=== PATIENT | female | born 1950 | race Caucasian/White ===

== ENCOUNTER → 2016-04-08 | Outpatient (CLI) | payer MEDICARE, OTHER ==
--- NOTE | 2016-04-08 14:10 | BD ---
EXAMINATION TYPE: MG DEXA axial skeleton. DATE OF EXAM: 04/08/2016 9:45 AM CLINICAL HISTORY: Postmenopausal female, V 49.81 Height: 64inches Weight: 195 FRAX RISK QUESTIONS: Alcohol (3 or more units per day): no Family History (Parent hip fracture): no Glucocorticoids (More than 3mos): no (Ex: prednisone, prednisolone, methylprednisolone, dexamethasone, and hydrocortisone). History of Fracture in Adulthood: ankle Secondary Osteoporosis: 1. Type 1 Diabetes: no 2. Hyperthyroidism: no 3. Menopause before 45: no 4. Malnutrition: no 5. Chronic liver disease: no Rheumatoid Arthritis: no Current Tobacco Use: no RISK FACTORS HISTORY OF: History of Fracture: yes, ankle When: 1987 Family History of Osteoporosis: no Drink Alcohol: yes, on occasion, socially Active: yes Diet low in dairy products/other sources of calcium: no Postmenopausal woman: yes Take estrogen and/or progesterone medications: no Lost more than 2 inches in height since high school: no Frequent falls: no Poor Health: no Hyperparathyroidism: no Adrenal Insufficiency: no MEDICATIONS: Prednisone or other steroids: no Thyroid Medications: yes Which medication: Synthroid How Long: less than 5 years Osteoporosis Medications: not now Which medication: Actonel How Long: at least one year Additional Medications: calcium, Metformin Additional History: borderline diabetic EXAM MEASUREMENTS: Bone mineral densitometry was performed using the Smartzer System. Bone mineral density as measured about the Lumbar spine is: ----- L1-L4(G/cm2): 1.130 T Score Values are as follows: ----- L2: -0.6 ----- L3: 0.1 ----- L4: -0.8 ----- L1-L4: -0.4 Bone mineral density has: Decreased -1.5% since study of: 03/09/2014 Bone mineral density about the R hip (g/cm2): 0.818 Bone mineral density about the L hip (g/cm2): 0.782 T Score values are as follows: -----R Neck: -1.6 -----L Neck: -1.8 -----R Intertrochanter: -0.7 -----L Intertrochanter: -0.4 Bone mineral density has: Increased 1.2% since study of: 03/09/2014 IMPRESSION Osteopenia (T Score between -2.5 and -1 as noted by T score values Bilateral hips There is slightly increased risk of fracture and the patient may be considered for treatment. Re-Screen 1-2 years. NOTE: T-SCORE=SD OF THE YOUNG ADULT MEAN.
== END | disposition home or self-care (01) ==
LOC: RADBDWWP 09:04
PROVIDERS: ATTEND Family Medicine
DX: M85.80 Other specified disorders of bone density and structure, unspecified site (principal); Z78.0 Asymptomatic menopausal state
CPT/HCPCS: 77080

== ENCOUNTER → 2016-12-28 | Outpatient (CLI) | payer MEDICARE, OTHER ==
--- NOTE | 2016-12-28 11:26 | MM ---
Reason for exam: screening (asymptomatic). Last mammogram was performed 2 years and 4 months ago. History: Patient is postmenopausal. Stereotactic core biopsy of the left breast, July 23, 2003. Physical Findings: A clinical breast exam by your physician is recommended on an annual basis and results should be correlated with mammographic findings. MG Screening Mammo w CAD Bilateral CC and MLO view(s) were taken. Prior study comparison: August 27, 2014, bilateral MG screening mammo w CAD. August 25, 2013, bilateral MG screening mammo w CAD. The breast tissue is heterogeneously dense. This may lower the sensitivity of mammography. There is no discrete abnormality. ASSESSMENT: Negative, BI-RAD 1 RECOMMENDATION: Routine screening mammogram of both breasts in 1 year.
== END | disposition home or self-care (01) ==
LOC: RADMAMWWP 08:09
PROVIDERS: ATTEND Family Medicine
DX: Z12.31 Encounter for screening mammogram for malignant neoplasm of breast (principal)

== ENCOUNTER 2017-06-12 19:01 | Inpatient (IN) | payer MEDICARE, OTHER ==
[2017-06-12] MEDS ORDERED: SODIUM CHLORIDE 0.9% 1,000 ML IV STA (19:33)
[2017-06-12] MEDS ORDERED: DICYCLOMINE 10 MG/ML 2 ML AMP IM STA (19:33)
[2017-06-12] MEDS ORDERED: ONDANSETRON 4 MG/2 ML VIAL IVP STA (19:33)
[2017-06-12] MEDS ORDERED: RX INFO: IV CONTRAST WAS GIVEN 1 EACH MISC MISCELLANE PRN (19:35)
--- NOTE | 2017-06-12 19:38 | ED ---
General Adult HPI - General Chief complaint: Abdominal Pain Stated complaint: ABD PAIN Time Seen by Provider: 06/12/17 19:15 Source: patient, EMS, RN notes reviewed Mode of arrival: EMS Limitations: no limitations - History of Present Illness Initial comments: 66-year-old female presents to the emergency department with a chief complaint of abdominal pain. She states she started with a little upper respiratory cough cold like symptoms. She states that she was placed on antibiotic but she does not know the name of it. She states she finished that on Wednesday. She states now she's had some left sided kidney pain. She states now she feels very bloated and is having abdominal cramping. She does admit to diarrhea with this. She denies any nausea or vomiting. She states sometimes the pain will radiate up into her chest. She denies any shortness of breath with this. She was concerned due to his discomfort so she thought that she should be seen. She denies any high fevers. She states that she has had problems with abdominal pain and indigestion in the past and they worked her up for a gallbladder but she states this is much lower.Patient denies any recent fever, chills, shortness of breath, chest pain, back pain, nausea vomiting, numbness or tingling, dysuria or hematuria, constipation, headaches or visual changes, or any other current symptoms. - Related Data Home Medications Medication Instructions Recorded Confirmed Cholecalciferol [Vitamin D3] 1,000 unit PO DAILY 06/12/17 06/12/17 Cyanocobalamin (Vitamin B-12) 1,000 mcg PO DAILY 06/12/17 06/12/17 [Vitamin B-12] Losartan Potassium 50 mg PO DAILY 06/12/17 06/12/17 Meclizine [Antivert] 25 mg PO TID PRN 06/12/17 06/12/17 Metoprolol Succinate [Toprol XL] 50 mg PO DAILY 06/12/17 06/12/17 Pravastatin Sodium [Pravachol] 80 mg PO HS 06/12/17 06/12/17 Protandin 1 tab PO DAILY 06/12/17 06/12/17 metFORMIN HCL [metFORMIN HCL ER] 750 mg PO HS 06/12/17 06/12/17 Allergies Allergy/AdvReac Type Severity Reaction Status Date / Time No Known Allergies Allergy Unverified 06/12/17 19:40 Review of Systems ROS Statement: Those systems with pertinent positive or pertinent negative responses have been documented in the HPI. ROS Other: All systems not noted in ROS Statement are negative. Past Medical History Past Medical History: Diabetes Mellitus, Hyperlipidemia, Hypertension History of Any Multi-Drug Resistant Organisms: None Reported Past Surgical History: Orthopedic Surgery Additional Past Surgical History / Comment(s): screws and pins inserted in left ankle Past Psychological History: No Psychological Hx Reported Smoking Status: Never smoker Past Alcohol Use History: Occasional Past Drug Use History: None Reported General Exam - General Exam Comments Initial Comments: General: The patient is awake and alert, in no distress, and does not appear acutely ill. Eye: Pupils are equal, round and reactive to light, extra-ocular movements are intact; there is normal conjunctiva bilaterally. No signs of icterus. Ears, nose, mouth and throat: There are moist mucous membranes and no oral lesions. Neck: The neck is supple, there is no tenderness. Cardiovascular: There is a regular rate and rhythm. No murmur, rub or gallop is appreciated. Respiratory: Lungs are clear to auscultation, respirations are non-labored, breath sounds are equal. No wheezes, stridor, rales, or rhonchi. Gastrointestinal: Soft, non-distended, diffusely mildly tender abdomen without masses or organomegaly noted. There is no rebound or guarding present. No CVA tenderness. Bowel sounds are unremarkable. Back: There is no tenderness to palpation in the midline. There is no obvious deformity. No rashes noted. Musculoskeletal: Normal ROM, no tenderness, There is no pedal edema. There is no calf tenderness or swelling. Sensation intact. Pulses equal bilaterally 2+. Neurological: CN II-XII intact, There are no obvious motor or sensory deficits. Coordination appears grossly intact. Speech is normal. Skin: Skin is warm and dry and no rashes or lesions are noted. Psychiatric: Cooperative, appropriate mood & affect, normal judgment. Limitations: no limitations Course Vital Signs 06/12/17 06/12/17 19:05 20:59 Temperature 97.4 F L Pulse Rate 76 83 Respiratory 17 17 Rate Blood Pressure 172/116 165/74 O2 Sat by Pulse 100 99 Oximetry EKG Findings - EKG Comments: EKG Findings:: Sinus rhythm with premature atrial complexes with abberrant conduction, ventricular rate 71, GA interval 138, QRS duration 72 Medical Decision Making - Medical Decision Making 66-year-old female presents to the emergency department with a chief complaint of abdominal pain. At this time patient's lab work has been reviewed. At this time CAT scan has been reviewed as well as. At this time the patient does continue to have some abdominal pain. Due to her CAT scan with concern for the dilated loops and question about obstruction we will admit the patient for ileus. She has not provided us a stool sample here has not passed gas. There is no nausea vomiting. We will put her on a clear liquid diet. We will have her doctors see her in the morning. Patient is in agreement this plan. We did discuss that we still do need a stool sample. Patient is in agreement PLAN. At this time she'll be discharged. - Lab Data Result diagrams: 06/12/17 19:42 06/12/17 19:42 Lab Results 06/12/17 06/12/17 06/12/17 Range/Units 19:42 19:42 19:42 WBC 8.6 (3.8-10.6) k/uL RBC 4.17 (3.80-5.40) m/uL Hgb 13.2 (11.4-16.0) gm/dL Hct 38.1 (34.0-46.0) % MCV 91.5 (80.0-100.0) fL MCH 31.7 (25.0-35.0) pg MCHC 34.7 (31.0-37.0) g/dL RDW 12.5 (11.5-15.5) % Plt Count 324 (150-450) k/uL Neutrophils % 74 % Lymphocytes % 17 % Monocytes % 4 % Eosinophils % 2 % Basophils % 0 % Neutrophils # 6.4 (1.3-7.7) k/uL Lymphocytes # 1.5 (1.0-4.8) k/uL Monocytes # 0.4 (0-1.0) k/uL Eosinophils # 0.1 (0-0.7) k/uL Basophils # 0.0 (0-0.2) k/uL PT (9.0-12.0) sec INR (<1.2) APTT (22.0-30.0) sec Sodium 143 (137-145) mmol/L Potassium 3.9 (3.5-5.1) mmol/L Chloride 108 H (98-107) mmol/L Carbon Dioxide 21 L (22-30) mmol/L Anion Gap 14 mmol/L BUN 18 H (7-17) mg/dL Creatinine 0.70 (0.52-1.04) mg/dL Est GFR (CKD-EPI)AfAm >90 (>60 ml/min/1.73 sqM) Est GFR (CKD-EPI)NonAf 90 (>60 ml/min/1.73 sqM) Glucose 126 H (74-99) mg/dL Plasma Lactic Acid Jose 2.4 H* (0.7-2.0) mmol/L Calcium 10.2 (8.4-10.2) mg/dL Total Bilirubin 0.3 (0.2-1.3) mg/dL AST 28 (14-36) U/L ALT 48 (9-52) U/L Alkaline Phosphatase 65 (38-126) U/L Total Creatine Kinase (30-135) U/L CK-MB (CK-2) (0.0-2.4) ng/mL CK-MB (CK-2) Rel Index Troponin I (0.000-0.034) ng/mL Total Protein 7.4 (6.3-8.2) g/dL Albumin 4.5 (3.5-5.0) g/dL Amylase 55 (30-110) U/L Lipase 129 (23-300) U/L Urine Color Urine Appearance (Clear) Urine pH (5.0-8.0) Ur Specific [place] (1.001-1.035) Urine Protein (Negative) Urine Glucose (UA) (Negative) Urine Ketones (Negative) Urine Blood (Negative) Urine Nitrite (Negative) Urine Bilirubin (Negative) Urine Urobilinogen (<2.0) mg/dL Ur Leukocyte Esterase (Negative) 06/12/17 06/12/17 06/12/17 Range/Units 19:42 19:42 19:42 WBC (3.8-10.6) k/uL RBC (3.80-5.40) m/uL Hgb (11.4-16.0) gm/dL Hct (34.0-46.0) % MCV (80.0-100.0) fL MCH (25.0-35.0) pg MCHC (31.0-37.0) g/dL RDW (11.5-15.5) % Plt Count (150-450) k/uL Neutrophils % % Lymphocytes % % Monocytes % % Eosinophils % % Basophils % % Neutrophils # (1.3-7.7) k/uL Lymphocytes # (1.0-4.8) k/uL Monocytes # (0-1.0) k/uL Eosinophils # (0-0.7) k/uL Basophils # (0-0.2) k/uL PT 10.0 (9.0-12.0) sec INR 1.0 (<1.2) APTT 22.0 (22.0-30.0) sec Sodium (137-145) mmol/L Potassium (3.5-5.1) mmol/L Chloride (98-107) mmol/L Carbon Dioxide (22-30) mmol/L Anion Gap mmol/L BUN (7-17) mg/dL Creatinine (0.52-1.04) mg/dL Est GFR (CKD-EPI)AfAm (>60 ml/min/1.73 sqM) Est GFR (CKD-EPI)NonAf (>60 ml/min/1.73 sqM) Glucose (74-99) mg/dL Plasma Lactic Acid Jose (0.7-2.0) mmol/L Calcium (8.4-10.2) mg/dL Total Bilirubin (0.2-1.3) mg/dL AST (14-36) U/L ALT (9-52) U/L Alkaline Phosphatase (38-126) U/L Total Creatine Kinase 54 (30-135) U/L CK-MB (CK-2) 0.6 (0.0-2.4) ng/mL CK-MB (CK-2) Rel Index 1.1 Troponin I <0.012 (0.000-0.034) ng/mL Total Protein (6.3-8.2) g/dL Albumin (3.5-5.0) g/dL Amylase (30-110) U/L Lipase (23-300) U/L Urine Color Light Yellow Urine Appearance Clear (Clear) Urine pH 7.5 (5.0-8.0) Ur Specific [place] 1.007 (1.001-1.035) Urine Protein Negative (Negative) Urine Glucose (UA) Negative (Negative) Urine Ketones Trace H (Negative) Urine Blood Negative (Negative) Urine Nitrite Negative (Negative) Urine Bilirubin Negative (Negative) Urine Urobilinogen <2.0 (<2.0) mg/dL Ur Leukocyte Esterase Negative (Negative) - Radiology Data Radiology results: report reviewed, image reviewed Disposition Clinical Impression: Ileus, Diarrhea, Abdominal pain Disposition: ADMITTED IP TO THIS [facility] Condition: Stable Referrals: Diana Jain MD [Primary Care Provider] - 1-2 days Decision Date: 06/12/17 Decision Time: 21:35
[2017-06-12 20:11] LABS: Appearance,Urine Clear (Clear); Bilirubin,Urine Negative (Negative); Blood,Urine Negative (Negative); Color,Urine Light Yellow; Glucose,Urine (UA) Negative (Negative); Ketones,Urine Trace (Negative); Leukocyte Esterase,Urine Negative (Negative); Nitrite,Urine Negative (Negative); PH, Urine 7.5 (5.0-8.0); Protein,Urine Negative (Negative); Specific Gravity,Urine 1.007 (1.001-1.035); Urobilinogen,Urine <2.0 mg/dL (<2.0)
[2017-06-12 20:14] LABS: Basophils % (A) 0 %; Eosinophils # (A) 0.1 k/uL (0-0.7); Eosinophils % (A) 2 %; HCT 38.1 % (34.0-46.0); HGB 13.2 gm/dL (11.4-16.0); Lymphocytes # (A) 1.5 k/uL (1.0-4.8); Lymphocytes % (A) 17 %; MCH 31.7 pg (25.0-35.0); MCHC 34.7 g/dL (31.0-37.0); MCV 91.5 fL (80.0-100.0); Mean Platelet Volume 6.7; Monocytes # (A) 0.4 k/uL (0-1.0); Monocytes % (A) 4 %; Neutrophils # (A) 6.4 k/uL (1.3-7.7); Neutrophils % (A) 74 %; Platelet Count 324 k/uL (150-450); RBC 4.17 m/uL (3.80-5.40); RDW 12.5 % (11.5-15.5); WBC 8.6 k/uL (3.8-10.6)
[2017-06-12 20:22] LABS: ALT 48 U/L (9-52); AST 28 U/L (14-36); Albumin 4.5 g/dL (3.5-5.0); Alkaline Phosphatase 65 U/L (38-126); Amylase 55 U/L (30-110); Anion Gap 14 mmol/L; Blood Urea Nitrogen 18 mg/dL (7-17); Calcium 10.2 mg/dL (8.4-10.2); Carbon Dioxide 21 mmol/L (22-30); Chloride 108 mmol/L (98-107); Glucose 126 mg/dL (74-99); Lipase 129 U/L (23-300); Potassium 3.9 mmol/L (3.5-5.1); Sodium 143 mmol/L (137-145); Total Bilirubin 0.3 mg/dL (0.2-1.3); Total Protein 7.4 g/dL (6.3-8.2)
[2017-06-12 20:25] LABS: Creatine Kinase 54 U/L (30-135)
[2017-06-12 20:37] LABS: Creatine Kinase MB 0.6 ng/mL (0.0-2.4); Troponin I <0.012 ng/mL (0.000-0.034)
--- NOTE | 2017-06-12 21:05 | CT ---
EXAMINATION TYPE: CT abdomen pelvis w con DATE OF EXAM: 06/12/2017 COMPARISON: NONE HISTORY: Diarrhea, bloating and abdominal pain x couple days. CT DLP: 1298.8 mGycm Automated exposure control for dose reduction was used. TECHNIQUE: Helical acquisition of images was performed from the lung bases through the pelvis. CONTRAST: Performed without Oral Contrast and with IV Contrast, patient injected with 100 mL of Omnipaque 300. FINDINGS: Mild dependent changes are noted at both lung bases. There is no pleural pericardial effusion. Liver, spleen, pancreas, adrenal glands, and kidneys are unremarkable. No hydronephrosis is identifie d. The gallbladder is nondistended. The appendix is not definitively visualized. There is no evidence of a bowel obstruction. There are s everal loops of bowel in the left upper quadrant which are dilated up to 4 cm. No definitive transiti on point is seen however it is suspected to be in the left upper quadrant. This could be related to a focal location of ileus. There is no free fluid or free intraperitoneal air. No mesenteric or retroperitoneal adenopathy seen. Urinary bladder is unremarkable. The uterus is present. The aorta is not dilated. No osteolytic or osteoblastic lesions are identified. IMPRESSION: Abnormally dilated loops of small bowel left upper quadrant up to 4 cm. The transition point is felt to be in the left upper quadrant. The degree of obstruction is over a long segment. Findings could be related to focal ileus or enteritis given patient history.
--- NOTE | 2017-06-12 21:22 | XR ---
EXAMINATION TYPE: XR chest 2V DATE OF EXAM: 06/12/2017 COMPARISON: December 18, 2011 HISTORY: Shortness of breath TECHNIQUE: Frontal and lateral views of the chest are obtained. FINDINGS: There is no focal air space opacity, pleural effusion, or pneumothorax seen. The cardiac silhouette size is within normal limits. The osseous structures are intact. IMPRESSION: No acute cardiopulmonary process.
[2017-06-12] MEDS ORDERED: NALOXONE 0.4 MG/ML 1 ML VIAL IV PRN (21:42)
[2017-06-12] MEDS ORDERED: ONDANSETRON 4 MG/2 ML VIAL IVP PRN (21:42)
[2017-06-12] MEDS ORDERED: KETOROLAC 30 MG/ML 1 ML VIAL IVP PRN (21:42)
[2017-06-12] MEDS ORDERED: ACETAMINOPHEN TAB 325 MG TAB PO PRN (21:42)
[2017-06-12] MEDS ORDERED: MECLIZINE 25 MG TAB PO PRN (21:43)
[2017-06-12] MEDS ORDERED: MORPHINE SULFATE 4 MG/ML SYRINGE IVP PRN (22:45)
[2017-06-12] MEDS: SODIUM CHLORIDE 0.9% 1,000 ML IV SCH (22:53)
[2017-06-12 23:33] VITALS: BMI 33.5
[2017-06-13 01:40] LABS: Creatine Kinase 49 U/L (30-135)
[2017-06-13 01:52] LABS: Creatine Kinase MB 0.8 ng/mL (0.0-2.4); Troponin I <0.012 ng/mL (0.000-0.034)
[2017-06-13] MEDS: SODIUM CHLORIDE 0.9% 1,000 ML IV SCH (05:45)
[2017-06-13] MEDS: metFORMIN 500 MG TAB PO SCH ×2 (06:17→08:27)
[2017-06-13 07:12] LABS: Basophils % (A) 1 %; Eosinophils # (A) 0.1 k/uL (0-0.7); Eosinophils % (A) 2 %; HCT 32.6 % (34.0-46.0); HGB 11.1 gm/dL (11.4-16.0); Lymphocytes # (A) 2.1 k/uL (1.0-4.8); Lymphocytes % (A) 30 %; MCH 31.7 pg (25.0-35.0); MCHC 33.9 g/dL (31.0-37.0); MCV 93.3 fL (80.0-100.0); Monocytes # (A) 0.4 k/uL (0-1.0); Monocytes % (A) 6 %; Neutrophils # (A) 4.1 k/uL (1.3-7.7); Neutrophils % (A) 59 %; Platelet Count 251 k/uL (150-450); RDW 12.5 % (11.5-15.5)
[2017-06-13 07:22] LABS: ALT 38 U/L (9-52); AST 22 U/L (14-36); Albumin 3.2 g/dL (3.5-5.0); Alkaline Phosphatase 47 U/L (38-126); Anion Gap 7 mmol/L; Blood Urea Nitrogen 17 mg/dL (7-17); Calcium 8.8 mg/dL (8.4-10.2); Carbon Dioxide 23 mmol/L (22-30); Chloride 111 mmol/L (98-107); Glucose 113 mg/dL (74-99); Potassium 4.4 mmol/L (3.5-5.1); Sodium 141 mmol/L (137-145); Total Bilirubin 0.4 mg/dL (0.2-1.3); Total Protein 5.7 g/dL (6.3-8.2)
[2017-06-13 07:33] LABS: Creatine Kinase 43 U/L (30-135)
[2017-06-13 07:45] LABS: Creatine Kinase MB 0.9 ng/mL (0.0-2.4); Troponin I <0.012 ng/mL (0.000-0.034)
[2017-06-13] MEDS ORDERED: LEVOTHYROXINE 75 MCG TAB PO SCH (09:00)
[2017-06-13] MEDS ORDERED: PANTOPRAZOLE 40 MG/10 ML VIAL IV SCH (09:00)
[2017-06-13] MEDS ORDERED: PROTANDIN PO SCH (09:00)
[2017-06-13] MEDS ORDERED: LOSARTAN 50 MG TAB PO SCH (09:00)
[2017-06-13] MEDS ORDERED: METOPROLOL SUCCINATE (ER) 50 MG TAB.ER.24H PO SCH (09:00)
--- NOTE | 2017-06-13 11:10 | P.GSCN ---
History of Present Illness Consult date: 06/13/17 Reason for Consult: Abdominal pain, nausea History of present illness: This is a 66-year-old female who was admitted to the hospital last night with complaints of severe abdominal pain and nausea. Patient did have some mild diarrhea. Patient states the pain resolved spontaneously. She states her abdominal pain is almost entirely resolved. She is tolerating clear liquids. On Past Medical History Past Medical History: Diabetes Mellitus, Hyperlipidemia, Hypertension, Thyroid Disorder History of Any Multi-Drug Resistant Organisms: None Reported Past Surgical History: Orthopedic Surgery Additional Past Surgical History / Comment(s): screws and pins inserted in left ankle Past Anesthesia/Blood Transfusion Reactions: No Reported Reaction Past Psychological History: No Psychological Hx Reported Smoking Status: Never smoker Past Alcohol Use History: Occasional Past Drug Use History: None Reported - Past Family History Mother Family Medical History: No Reported History Medications and Allergies Home Medications Medication Instructions Recorded Confirmed Type Cholecalciferol [Vitamin D3] 1,000 unit PO DAILY 06/12/17 06/12/17 History Cyanocobalamin (Vitamin B-12) 1,000 mcg PO DAILY 06/12/17 06/12/17 History [Vitamin B-12] Losartan Potassium 50 mg PO DAILY 06/12/17 06/12/17 History Meclizine [Antivert] 25 mg PO TID PRN 06/12/17 06/12/17 History Metoprolol Succinate [Toprol XL] 50 mg PO DAILY 06/12/17 06/12/17 History Pravastatin Sodium [Pravachol] 80 mg PO HS 06/12/17 06/12/17 History Protandin 1 tab PO DAILY 06/12/17 06/12/17 History metFORMIN HCL [metFORMIN HCL ER] 750 mg PO HS 06/12/17 06/12/17 History Levothyroxine Sodium [Synthroid] 75 mcg PO DAILY 06/13/17 06/13/17 History Allergies Allergy/AdvReac Type Severity Reaction Status Date / Time No Known Allergies Allergy Verified 06/12/17 23:37 Surgical - Exam Vital Signs Temp Pulse Resp BP Pulse Ox 97.4 F L 76 17 172/116 100 06/12/17 19:05 06/12/17 19:05 06/12/17 19:05 06/12/17 19:05 06/12/17 19:05 - General well developed, well nourished, no distress - Eyes PERRL - ENT normal pinna - Neck no masses - Respiratory normal expansion - Cardiovascular Rhythm: regular - Abdomen Abdomen: soft, non tender Results - Labs 06/13/17 06:47 06/13/17 06:47 Abnormal Lab Results - Last 24 Hours (Table) 06/12/17 06/12/17 06/12/17 Range/Units 19:42 19:42 19:42 RBC (3.80-5.40) m/uL Hgb (11.4-16.0) gm/dL Hct (34.0-46.0) % Chloride 108 H (98-107) mmol/L Carbon Dioxide 21 L (22-30) mmol/L BUN 18 H (7-17) mg/dL Glucose 126 H (74-99) mg/dL Plasma Lactic Acid Jose 2.4 H* (0.7-2.0) mmol/L Total Protein (6.3-8.2) g/dL Albumin (3.5-5.0) g/dL Urine Ketones Trace H (Negative) 06/13/17 06/13/17 Range/Units 06:47 06:47 RBC 3.50 L (3.80-5.40) m/uL Hgb 11.1 L (11.4-16.0) gm/dL Hct 32.6 L (34.0-46.0) % Chloride 111 H (98-107) mmol/L Carbon Dioxide (22-30) mmol/L BUN (7-17) mg/dL Glucose 113 H (74-99) mg/dL Plasma Lactic Acid Jose (0.7-2.0) mmol/L Total Protein 5.7 L (6.3-8.2) g/dL Albumin 3.2 L (3.5-5.0) g/dL Urine Ketones (Negative) Microbiology - Last 24 Hours (Table) 06/12/17 19:42 Urine Culture - Preliminary Urine,Voided Diabetes panel 06/12/17 06/13/17 Range/Units 19:42 06:47 Sodium 143 141 (137-145) mmol/L Potassium 3.9 4.4 (3.5-5.1) mmol/L Chloride 108 H 111 H (98-107) mmol/L Carbon Dioxide 21 L 23 (22-30) mmol/L BUN 18 H 17 (7-17) mg/dL Creatinine 0.70 0.60 (0.52-1.04) mg/dL Glucose 126 H 113 H (74-99) mg/dL Calcium 10.2 8.8 (8.4-10.2) mg/dL AST 28 22 (14-36) U/L ALT 48 38 (9-52) U/L Alkaline Phosphatase 65 47 (38-126) U/L Total Protein 7.4 5.7 L (6.3-8.2) g/dL Albumin 4.5 3.2 L (3.5-5.0) g/dL Calcium panel 06/12/17 06/13/17 Range/Units 19:42 06:47 Calcium 10.2 8.8 (8.4-10.2) mg/dL Albumin 4.5 3.2 L (3.5-5.0) g/dL Pituitary panel 06/12/17 06/13/17 Range/Units 19:42 06:47 Sodium 143 141 (137-145) mmol/L Potassium 3.9 4.4 (3.5-5.1) mmol/L Chloride 108 H 111 H (98-107) mmol/L Carbon Dioxide 21 L 23 (22-30) mmol/L BUN 18 H 17 (7-17) mg/dL Creatinine 0.70 0.60 (0.52-1.04) mg/dL Glucose 126 H 113 H (74-99) mg/dL Calcium 10.2 8.8 (8.4-10.2) mg/dL Adrenal panel 06/12/17 06/13/17 Range/Units 19:42 06:47 Sodium 143 141 (137-145) mmol/L Potassium 3.9 4.4 (3.5-5.1) mmol/L Chloride 108 H 111 H (98-107) mmol/L Carbon Dioxide 21 L 23 (22-30) mmol/L BUN 18 H 17 (7-17) mg/dL Creatinine 0.70 0.60 (0.52-1.04) mg/dL Glucose 126 H 113 H (74-99) mg/dL Calcium 10.2 8.8 (8.4-10.2) mg/dL Total Bilirubin 0.3 0.4 (0.2-1.3) mg/dL AST 28 22 (14-36) U/L ALT 48 38 (9-52) U/L Alkaline Phosphatase 65 47 (38-126) U/L Total Protein 7.4 5.7 L (6.3-8.2) g/dL Albumin 4.5 3.2 L (3.5-5.0) g/dL Assessment and Plan Assessment: Resolving enteritis. Patient be discharged home. She will follow-up in one week for follow-up.
[2017-06-13] MEDS ORDERED: CHOLECALCIFEROL 1,000 UNIT TAB PO SCH (12:00)
[2017-06-13] MEDS ORDERED: CYANOCOBALAMIN 500 MCG TAB PO SCH (12:00)
--- NOTE | 2017-06-13 12:01 | P.HPIM ---
History of Present Illness H&P Date: 06/13/17 Chief Complaint: abdominal pain This is 66 years old female with history of diabetes mellitus presents to the hospital with new onset abdominal pain. Patient stated that she was eating with Family and 2 hours later she experienced all of a sudden abdominal pain located to the center radiating to the right and to the left and described it as a clamps patient seen was intolerable and patient determined to come into the emergency department and called EMS. Patient described the pain as cramping 10 over 10 associated with nausea no vomiting patient stated that she was having diarrhea for the last 2 weeks after she completed her course of antibiotics for sinus infection and the diarrhea has been going since that time on average 2-3 times a day and she described it as watery and no obvious smell for the bowel movement other than the normal. Patient denied any history of C. difficile denied any recent travel out of the country patient remembers was he had CT scan of the abdomen which showed possible gastritis versus small bowel obstruction/ileus and patient was admitted due to elevated lactic acid at 2.3 patient received fluid and currently is pain-free denying any nausea vomiting feels like trying liquid diet has passed stool and flatus and that she would like to go home if possible. Patient denied any weight loss night sweats low- grade fever and said that she has been on metformin for 2 month for her diabetes and since she started the metformin her symptoms started to be worse especially had a bloating nausea and loose bowel movement Review of Systems 14 systems reviewed and negative except as above Past Medical History Past Medical History: Diabetes Mellitus, Hyperlipidemia, Hypertension, Thyroid Disorder History of Any Multi-Drug Resistant Organisms: None Reported Past Surgical History: Orthopedic Surgery Additional Past Surgical History / Comment(s): screws and pins inserted in left ankle Past Anesthesia/Blood Transfusion Reactions: No Reported Reaction Past Psychological History: No Psychological Hx Reported Smoking Status: Never smoker Past Alcohol Use History: Occasional Past Drug Use History: None Reported - Past Family History Mother Family Medical History: No Reported History Medications and Allergies Home Medications Medication Instructions Recorded Confirmed Type Cholecalciferol [Vitamin D3] 1,000 unit PO DAILY 06/12/17 06/12/17 History Cyanocobalamin (Vitamin B-12) 1,000 mcg PO DAILY 06/12/17 06/12/17 History [Vitamin B-12] Losartan Potassium 50 mg PO DAILY 06/12/17 06/12/17 History Meclizine [Antivert] 25 mg PO TID PRN 06/12/17 06/12/17 History Metoprolol Succinate [Toprol XL] 50 mg PO DAILY 06/12/17 06/12/17 History Pravastatin Sodium [Pravachol] 80 mg PO HS 06/12/17 06/12/17 History Protandin 1 tab PO DAILY 06/12/17 06/12/17 History metFORMIN HCL [metFORMIN HCL ER] 750 mg PO HS 06/12/17 06/12/17 History Levothyroxine Sodium [Synthroid] 75 mcg PO DAILY 06/13/17 06/13/17 History Allergies Allergy/AdvReac Type Severity Reaction Status Date / Time No Known Allergies Allergy Verified 06/12/17 23:37 Physical Exam Vitals: Vital Signs Temp Pulse Pulse Pulse Resp BP BP 06/13/17 08:20 97.4 F L 70 16 149/77 06/12/17 23:25 97.9 F 70 16 157/77 06/12/17 21:50 81 16 164/76 06/12/17 20:59 83 17 165/74 06/12/17 19:05 97.4 F L 76 17 172/116 Pulse Ox 06/13/17 08:20 98 06/12/17 23:25 98 06/12/17 21:50 99 06/12/17 20:59 99 06/12/17 19:05 100 Intake and Output 06/12/17 06/13/17 06/13/17 22:59 06:59 14:59 Output Total 200 200 Balance -200 -200 Output: Urine 200 200 Other: Weight 90.265 kg 88.451 kg - Constitutional General appearance: obese - EENT Eyes: PERRLA - Neck Neck: normal ROM - Respiratory Respiratory: bilateral: CTA - Cardiovascular Heart sounds: normal: S1, S2 - Gastrointestinal General gastrointestinal: distended, normal bowel sounds, soft - Integumentary Integumentary: normal - Neurologic Neurologic: CNII-XII intact - Musculoskeletal Musculoskeletal: gait normal - Psychiatric Psychiatric: A&O x's 3, appropriate affect Results CBC & Chem 7: 06/13/17 06:47 06/13/17 06:47 Labs: Abnormal Lab Results - Last 24 Hours (Table) 06/12/17 06/12/17 06/12/17 Range/Units 19:42 19:42 19:42 RBC (3.80-5.40) m/uL Hgb (11.4-16.0) gm/dL Hct (34.0-46.0) % Chloride 108 H (98-107) mmol/L Carbon Dioxide 21 L (22-30) mmol/L BUN 18 H (7-17) mg/dL Glucose 126 H (74-99) mg/dL Plasma Lactic Acid Jose 2.4 H* (0.7-2.0) mmol/L Total Protein (6.3-8.2) g/dL Albumin (3.5-5.0) g/dL Urine Ketones Trace H (Negative) 06/13/17 06/13/17 Range/Units 06:47 06:47 RBC 3.50 L (3.80-5.40) m/uL Hgb 11.1 L (11.4-16.0) gm/dL Hct 32.6 L (34.0-46.0) % Chloride 111 H (98-107) mmol/L Carbon Dioxide (22-30) mmol/L BUN (7-17) mg/dL Glucose 113 H (74-99) mg/dL Plasma Lactic Acid Jose (0.7-2.0) mmol/L Total Protein 5.7 L (6.3-8.2) g/dL Albumin 3.2 L (3.5-5.0) g/dL Urine Ketones (Negative) Microbiology - Last 24 Hours (Table) 06/12/17 19:42 Urine Culture - Preliminary Urine,Voided Thrombosis Risk Factor Assmnt - Choose All That Apply Any of the Below Risk Factors Present?: Yes Each Factor Represents 1 point: Obesity (BMI >25) Other Risk Factors: Yes Each Risk Factor Represents 2 Points: Age 61-74 years Other congenital or acquired thrombophilia - If yes, enter type in comment: No Thrombosis Risk Factor Assessment Total Risk Factor Score: 3 Thrombosis Risk Factor Assessment Level: Moderate Risk Assessment and Plan Assessment: 1. Abdominal pain. 2. Lactic acidosis. 3. Gastroenteritis less likely to be related to ileus. 4. Recent diarrhea. 5. Possible intolerance for metformin. 6. Hypertension. 7. Obesity. 8. Hyperlipidemia. 9. Mild anemia 10. Dehydration Plan: We will continue gentle hydration how general surgery evaluated the patient discontinue metformin and have patient follow-up with her primary care physician in 2-3 days patient understands that this could be related to metformin and she needs to stop it and follow-up with her primary care physician for other consideration. We'll introduce clear liquid diet deficiency tolerating she can be discharged after seen by general surgery plan discussed with the patient and her son at the bedside who are both agreeable to the current treatment plan and said her last bowel movement was yesterday in the emergency department
--- NOTE | 2017-06-13 12:03 | P.DS ---
Providers Date of admission: 06/12/17 22:27 Attending physician: Tom Smith Consults: 06/13/17 08:51 Consult Physician Routine Consulting Provider: Michael Bahena Consult Reason/Comments: acute abdominal pain Do you want consulting provider notified?: Yes Primary care physician: Diana Jain [facility] Course: This is 66 years old female who presented to the hospital with intractable nausea abdominal pain and diarrhea which felt to be related to gastroenteritis patient was able to tolerate liquid diet evaluated by general surgery who cleared her for discharge to follow-up in the office in one week patient asked to stop her metformin and follow up with her primary care physician as her symptoms could be related also to metformin. Patient was stable and discharged home to follow-up with her primary care physician in 3 days Patient Condition at Discharge: Stable Plan - Discharge Summary Discharge Rx Participant: No New Discharge Prescriptions: No Action metFORMIN HCL [metFORMIN HCL ER] 750 mg PO HS Metoprolol Succinate [Toprol XL] 50 mg PO DAILY Cyanocobalamin (Vitamin B-12) [Vitamin B-12] 1,000 mcg PO DAILY Cholecalciferol [Vitamin D3] 1,000 unit PO DAILY Pravastatin Sodium [Pravachol] 80 mg PO HS Meclizine [Antivert] 25 mg PO TID PRN PRN Reason: Nausea And Vomiting Protandin 1 tab PO DAILY Losartan Potassium 50 mg PO DAILY Levothyroxine Sodium [Synthroid] 75 mcg PO DAILY Discharge Medication List Cholecalciferol [Vitamin D3] 1,000 unit PO DAILY 06/12/17 [History] Cyanocobalamin (Vitamin B-12) [Vitamin B-12] 1,000 mcg PO DAILY 06/12/17 [ History] Losartan Potassium 50 mg PO DAILY 06/12/17 [History] Meclizine [Antivert] 25 mg PO TID PRN 06/12/17 [History] Metoprolol Succinate [Toprol XL] 50 mg PO DAILY 06/12/17 [History] Pravastatin Sodium [Pravachol] 80 mg PO HS 06/12/17 [History] Protandin 1 tab PO DAILY 06/12/17 [History] metFORMIN HCL [metFORMIN HCL ER] 750 mg PO HS 06/12/17 [History] Levothyroxine Sodium [Synthroid] 75 mcg PO DAILY 06/13/17 [History] Follow up Appointment(s)/Referral(s): Diana Jain MD [Primary Care Provider] - 1-2 days Michael Bahena MD [STAFF PHYSICIAN] - 1 Week Patient Instructions/Handouts: Acute Abdominal Pain (DC) Activity/Diet/Wound Care/Special Instructions: Diet as tolerated. Drink plenty of fluids. Call Dr Jain's office to be seen in one week. Call Dr Bahena's office on Wednesday to be seen in one week. Stop taking the metformin. Dr. Jain will give you further instructions at the recheck appointment. Return to the [facility] if you experience the abdominal pain. Discharge Disposition: HOME SELF-CARE
[2017-06-13 12:15] VITALS: PULSE 64; RESP 18; TEMP 98
[2017-06-13 12:40] VITALS: BP 149/86
[2017-06-13] MEDS ORDERED: PRAVASTATIN SODIUM 80 MG TAB PO SCH (21:00)
== END 2017-06-13 12:55 | disposition home or self-care (01) | DRG 392 ==
LOC: EC 19:01 → OBSVTOIN 22:27 → 6PED 22:27
PROVIDERS: ADMIT Internal Medicine; ATTEND Internal Medicine
DX: K52.9 Noninfective gastroenteritis and colitis, unspecified (principal); E87.2 Acidosis; E66.9 Obesity, unspecified; D64.9 Anemia, unspecified; E11.9 Type 2 diabetes mellitus without complications; E07.9 Disorder of thyroid, unspecified; E78.5 Hyperlipidemia, unspecified; I10 Essential (primary) hypertension; E86.0 Dehydration; Z68.33 Body mass index [BMI] 33.0-33.9, adult; Z79.84 Long term (current) use of oral hypoglycemic drugs; Z79.899 Other long term (current) drug therapy
CPT/HCPCS: 36415; 71046; 74177; 80053; 81003; 82150; 82550; 82553; 83605; 83690; 84484; 85025; 85610; 85730; 87040; 87086; 93005; 96361; 96372; 96374; 96375; 96376; 99285

== ENCOUNTER 2017-08-23 16:26 | Emergency (ER) | payer MEDICARE ==
[2017-08-23 16:32] VITALS: TEMP 97.8
[2017-08-23] MEDS ORDERED: KETOROLAC 60 MG/2 ML VIAL IM STA (16:53)
[2017-08-23] MEDS ORDERED: DIAZEPAM 5 MG TAB PO STA (16:54)
--- NOTE | 2017-08-23 17:25 | ED ---
General Adult HPI - General Chief complaint: Back Pain/Injury Stated complaint: Back Pain Time Seen by Provider: 08/23/17 16:39 Source: patient, RN notes reviewed Mode of arrival: wheelchair Limitations: no limitations - History of Present Illness Initial comments: Patient is a 66-year-old female presenting to the emergency room today with a chief complaint of increased back pain radiating down the right leg approximately mid thigh. Patient states that she was laying down on the couch when she went to get up and had increased back pain. Patient was met that it's been radiating down the right leg approximately mid right thigh. Denies any bowel or bladder incontinence retention. Denies any saddle anesthesia. Patient does admit that she had previous pain a few days ago when she was working outside. states it's worse with certain movements specifically bending forward. Patient denies any recent fever, chills, shortness of breath, chest pain, abdominal pain, nausea or vomiting, dysuria or hematuria, constipation or diarrhea, headaches or visual changes, or any other complaints. - Related Data Home Medications Medication Instructions Recorded Confirmed Cholecalciferol [Vitamin D3] 1,000 unit PO DAILY 06/12/17 08/23/17 Cyanocobalamin (Vitamin B-12) 1,000 mcg PO DAILY 06/12/17 08/23/17 [Vitamin B-12] Losartan Potassium 50 mg PO DAILY 06/12/17 08/23/17 Meclizine [Antivert] 25 mg PO TID PRN 06/12/17 08/23/17 Metoprolol Succinate [Toprol XL] 50 mg PO DAILY 06/12/17 08/23/17 Pravastatin Sodium [Pravachol] 80 mg PO HS 06/12/17 08/23/17 Protandin 1 tab PO DAILY 06/12/17 08/23/17 metFORMIN HCL [metFORMIN HCL ER] 750 mg PO HS 06/12/17 08/23/17 Levothyroxine Sodium [Synthroid] 75 mcg PO DAILY 06/13/17 08/23/17 Aspirin 81 mg PO DAILY 08/23/17 08/23/17 Previous Rx's Medication Instructions Recorded Cyclobenzaprine [Flexeril] 10 mg PO TID #20 tab 08/23/17 Hydrocodone/Acetaminophen [[place] 1 each PO Q6HR PRN #12 tab 05/28/18 5-325] Ibuprofen [Motrin] 600 mg PO Q6HR PRN #40 day 08/23/17 Allergies Allergy/AdvReac Type Severity Reaction Status Date / Time No Known Allergies Allergy Verified 08/23/17 16:31 Review of Systems ROS Statement: Those systems with pertinent positive or pertinent negative responses have been documented in the HPI. ROS Other: All systems not noted in ROS Statement are negative. Past Medical History Past Medical History: Diabetes Mellitus, Hyperlipidemia, Hypertension, Thyroid Disorder History of Any Multi-Drug Resistant Organisms: None Reported Past Surgical History: Orthopedic Surgery Additional Past Surgical History / Comment(s): screws and pins inserted in left ankle Past Anesthesia/Blood Transfusion Reactions: No Reported Reaction Past Psychological History: No Psychological Hx Reported Smoking Status: Never smoker Past Alcohol Use History: Occasional Past Drug Use History: None Reported - Past Family History Mother Family Medical History: No Reported History General Exam - General Exam Comments Initial Comments: General: The patient is awake and alert, in no distress, and does not appear acutely ill. Eye: Pupils are equal, round and reactive to light, extra-ocular movements are intact. No nystagmus. There is normal conjunctiva bilaterally. No signs of icterus. Ears, nose, mouth and throat: There are moist mucous membranes and no oral lesions. Neck: The neck is supple, there is no tenderness or JVD. Cardiovascular: There is a regular rate and rhythm. No murmur, rub or gallop is appreciated. Respiratory: Lungs are clear to auscultation, respirations are non-labored, breath sounds are equal. No wheezes, stridor, rales, or rhonchi. Musculoskeletal: Decreased range of motion due to pain. Patient does have normal appearance of thoracic lumbar spine without step-off or deformity. Does have tenderness paravertebrally to the right side of the lower lumbar. Strength 5/5. Sensation intact. Pulses equal bilaterally 2+. Neurological: A&O x 3. CN II-XII intact, There are no obvious motor or sensory deficits. Coordination appears grossly intact. Speech is normal. Skin: Skin is warm and dry and no rashes or lesions are noted. Psychiatric: Cooperative, appropriate mood & affect, normal judgment. Limitations: no limitations Course Vital Signs 08/23/17 08/23/17 16:28 18:29 Temperature 97.8 F Pulse Rate 70 67 Respiratory 20 18 Rate Blood Pressure 131/66 170/74 O2 Sat by Pulse 98 99 Oximetry Medical Decision Making - Medical Decision Making Patient reexamined at this time states there is some improvement after Toradol, Valium given here in the emergency room. Her pain is reproduced with certain movements. She does have tenderness to the right side of the lumbar paravertebrally. Patient's x-rays are unremarkable. Signs and symptoms of concern and reason for return here to the emergency room were discussed with the patient in detail. This time patient will be discharged home with a short prescription of [place] for pain along with muscle relaxer and anti- inflammatories. Patient is advised follow family doctor over the next 2 days. Discussed option of further evaluation and possible MRI. Advised to return to emergency room symptoms increase or worsen or for any other concerns. She states understanding and is in agreement. Disposition Clinical Impression: Acute low back pain Disposition: HOME SELF-CARE Condition: Good Instructions: Acute Low Back Pain (ED) Additional Instructions: Please use medication as discussed. Please follow-up with family doctor in the next 2 days of symptoms have not improved. Please return to emergency room if the symptoms increase or worsen or for any other concerns. Prescriptions: Cyclobenzaprine [Flexeril] 10 mg PO TID #20 tab Hydrocodone/Acetaminophen [[place] 5-325] 1 each PO Q6HR PRN #12 tab PRN Reason: Pain Ibuprofen [Motrin] 600 mg PO Q6HR PRN #40 day PRN Reason: Pain Is patient prescribed a controlled substance at d/c from ED?: Yes When asked, does pt state using other controlled substances?: No If prescribed controlled substance>3 days was MAPS reviewed?: Prescribed <3 Days If opioid is for acute pain is fill amount 7 days or less?: No Referrals: Diana Jain MD [Primary Care Provider] - 1-2 days Time of Disposition: 18:44
--- NOTE | 2017-08-23 18:27 | XR ---
PROCEDURE: XR lumbar spine 4V DATE AND TIME: 08/23/2017 5:31 PM REFERRING PHYSICIAN: Romel Sen CLINICAL INDICATION: PHH, Pain, low back strain TECHNIQUE: Department protocol. COMPARISON: None FINDINGS: There is no fracture or malalignment. The soft tissues are unremarkable. Mild and moderate multilevel lumbar spondylosis changes are appreciated. IMPRESSION: NO ACUTE PROCESS.
[2017-08-23 18:29] VITALS: BP 170/74; PULSE 67; RESP 18
[2017-08-23] MEDS ORDERED: HYDROcodone/APAP 5-325MG 1 EACH TAB PO STA (18:43)
== END 2017-08-23 19:05 | disposition home or self-care (01) ==
LOC: EC 16:26
DX: M54.5 Low back pain (principal); E11.9 Type 2 diabetes mellitus without complications; E78.5 Hyperlipidemia, unspecified; I10 Essential (primary) hypertension; E07.9 Disorder of thyroid, unspecified; Z79.82 Long term (current) use of aspirin; Z79.84 Long term (current) use of oral hypoglycemic drugs; Z79.899 Other long term (current) drug therapy
CPT/HCPCS: 99283; 96372; 72100; J1885

== ENCOUNTER → 2019-01-03 | Outpatient (CLI) | payer MEDICARE ==
--- NOTE | 2019-01-03 09:47 | BD ---
EXAMINATION TYPE: Axial Bone Density DATE OF EXAM: 01/03/2019 COMPARISON: 2017 CLINICAL HISTORY: N 95.1 Height: 5 FT 3 1/2 IN Weight: 180 FRAX RISK QUESTIONS: History of Fracture in Adulthood: YES Secondary Osteoporosis: Rheumatoid Arthritis: YES RISK FACTORS HISTORY OF: Family History of Osteoporosis: YES Active: YES Postmenopausal woman: AGE 51 MEDICATIONS: Thyroid Medications: YES Which medication: SYNTHROID How Lon YEARS Additional Medications: SYNTHROID, BLOOD PRESSURE MEDS ,METFORMIN ,CHOLESTEROL MEDS Additional History: EXAM MEASUREMENTS: Bone mineral densitometry was performed using the [employer]. Bone mineral density as measured about the Lumbar spine is: ----- L1-L4(G/cm2): 1.139 T Score Values are as follows: ----- L2: -0.9 ----- L3: -0.3 ----- L4: -0.2 ----- L1-L4: -0.3 Bone mineral density has: INCREASED 0.2 % since study of: 2016 Bone mineral density about the R hip (g/cm2): 0.801 Bone mineral density about the L hip (g/cm2): 0.767 T Score values are as follows: -----R Neck: -1.7 -----L Neck: -1.9 -----R Total: -1.8 -----L Total: -1.4 Bone mineral density has: DECREASED -6.2 % since study of: 2017 IMPRESSION: Osteopenia (T Score between -2.5 and -1). There is slightly increased risk of fracture and the patient may be considered for treatment. Re-Screen 2-5 years. NOTE: T-SCORE=SD OF THE YOUNG ADULT MEAN.
--- NOTE | 2019-01-05 14:14 | MM ---
Reason for exam: screening (asymptomatic). Last mammogram was performed 2 years ago. History: Patient is postmenopausal. Stereotactic core biopsy of the left breast, July 23, 2003. Physical Findings: A clinical breast exam by your physician is recommended on an annual basis and results should be correlated with mammographic findings. MG 3D Screening Mammo W/Cad Bilateral CC and MLO view(s) were taken. Prior study comparison: December 28, 2016, bilateral MG screening mammo w CAD. August 27, 2014, bilateral MG screening mammo w CAD. The breast tissue is heterogeneously dense. This may lower the sensitivity of mammography. No suspicious abnormality. No significant changes when compared with prior studies. ASSESSMENT: Negative, BI-RAD 1 RECOMMENDATION: Routine screening mammogram of both breasts in 1 year.
== END ==
LOC: RADMAMWWP 07:48
PROVIDERS: ATTEND Family Medicine
DX: Z12.31 Encounter for screening mammogram for malignant neoplasm of breast (principal); M85.80 Other specified disorders of bone density and structure, unspecified site; N95.1 Menopausal and female climacteric states
CPT/HCPCS: 77063; 77067; 77080

== ENCOUNTER → 2020-05-28 | Outpatient (CLI) | payer MEDICARE ==
--- NOTE | 2020-05-30 10:47 | MM ---
Reason for exam: screening (asymptomatic). Last mammogram was performed 1 year and 5 months ago. History: Patient is postmenopausal. Stereotactic core biopsy of the left breast, July 23, 2003. Took hormonal contraceptives for 7 months. Physical Findings: A clinical breast exam by your physician is recommended on an annual basis and results should be correlated with mammographic findings. MG 3D Screening Mammo W/Cad Bilateral CC and MLO view(s) were taken. Prior study comparison: January 03, 2019, bilateral MG 3d screening mammo w/cad. December 28, 2016, bilateral MG screening mammo w CAD. The breast tissue is heterogeneously dense. This may lower the sensitivity of mammography. No significant changes when compared with prior studies. ASSESSMENT: Negative, BI-RAD 1 RECOMMENDATION: Routine screening mammogram of both breasts in 1 year.
== END ==
LOC: RADMAMWWP 11:10
PROVIDERS: ATTEND Family Medicine
DX: Z12.31 Encounter for screening mammogram for malignant neoplasm of breast (principal); Z78.0 Asymptomatic menopausal state
CPT/HCPCS: 77063; 77067

== ENCOUNTER 2022-01-16 00:33 | Inpatient (IN) | payer MEDICARE ==
[2022-01-16] MEDS ORDERED: SODIUM CHLORIDE 0.9% 1,000 ML IV STA (01:41)
[2022-01-16] MEDS ORDERED: PANTOPRAZOLE 40 MG/10 ML VIAL IVP STA (01:41)
[2022-01-16] MEDS ORDERED: MORPHINE SULFATE 4 MG/ML SYRINGE IV STA (01:41)
[2022-01-16] MEDS ORDERED: ONDANSETRON 4 MG/2 ML VIAL IVP STA (01:41)
[2022-01-16 02:32] LABS: Basophils # (A) 0.1 k/uL (0-0.2); Basophils % (A) 1 %; Eosinophils % (A) 1 %; HGB 13.4 gm/dL (11.4-16.0); Lymphocytes # (A) 1.3 k/uL (1.0-4.8); Lymphocytes % (A) 15 %; MCH 32.5 pg (25.0-35.0); MCHC 35.2 g/dL (31.0-37.0); MCV 92.5 fL (80.0-100.0); Mean Platelet Volume 8.1; Monocytes # (A) 0.4 k/uL (0-1.0); Monocytes % (A) 5 %; Neutrophils # (A) 6.8 k/uL (1.3-7.7); Neutrophils % (A) 76 %; Platelet Count 260 k/uL (150-450); RBC 4.11 m/uL (3.80-5.40); RDW 12.6 % (11.5-15.5); WBC 8.9 k/uL (3.8-10.6)
[2022-01-16 02:54] LABS: ALT 36 U/L (4-34); AST 30 U/L (14-36); African American GFR (CKD) >90 (>60 ml/min/1.73 sqM); Albumin 4.7 g/dL (3.5-5.0); Alkaline Phosphatase 83 U/L (38-126); Amylase 61 U/L (30-110); Anion Gap 16 mmol/L; Blood Urea Nitrogen 20 mg/dL (7-17); Calcium 10.1 mg/dL (8.4-10.2); Carbon Dioxide 20 mmol/L (22-30); Chloride 97 mmol/L (98-107); Glucose 144 mg/dL (74-99); Lipase 115 U/L (23-300); Non-African American GFR(CKD) 83 (>60 ml/min/1.73 sqM); Potassium 4.4 mmol/L (3.5-5.1); Sodium 133 mmol/L (137-145); Total Protein 7.8 g/dL (6.3-8.2)
[2022-01-16 02:58] LABS: INR 1.1 (<1.2)
--- NOTE | 2022-01-16 03:03 | ED ---
General Adult HPI - General Chief complaint: Abdominal Pain Stated complaint: Abdominal Pain, Gallbladder attack Time Seen by Provider: 01/16/22 01:25 Source: patient, RN notes reviewed, old records reviewed Mode of arrival: ambulatory - History of Present Illness Initial comments: Patient is a 71-year-old female with past medical history remarkable for tension, diabetes, hyperlipidemia, thyroid disorder who presents emergency Department complaining of abdominal pain. Has had no she with her gallbladder in the past. Also has had history of ileus. Denies any history of abdominal surgeries. States that the pain started earlier this afternoon. No known provocative or palliative factors. States it is primarily in the right upper quadrant, epigastric region, as well as near her belly button. Distal been passing gas. Last bowel movement was on Wednesday and was within normal limits. Nonbloody. Endorses nausea but no episodes of emesis. Denies any chest pain or shortness of breath. States the pain is somewhat worse since earlier and has been constant. Presents for further evaluation time. Does feel nauseous. Has any chest pain, shortness of breath. Denies any fevers, chills, cough. - Related Data Home Medications Medication Instructions Recorded Confirmed Cholecalciferol [Vitamin D3] 1,000 unit PO DAILY 06/12/17 08/23/17 Cyanocobalamin (Vitamin B-12) 1,000 mcg PO DAILY 06/12/17 08/23/17 [Vitamin B-12] Losartan Potassium 50 mg PO DAILY 06/12/17 08/23/17 Meclizine [Antivert] 25 mg PO TID PRN 06/12/17 08/23/17 Metoprolol Succinate [Toprol XL] 50 mg PO DAILY 06/12/17 08/23/17 Pravastatin Sodium [Pravachol] 80 mg PO HS 06/12/17 08/23/17 Protandin 1 tab PO DAILY 06/12/17 08/23/17 metFORMIN HCL [metFORMIN HCL ER] 750 mg PO HS 06/12/17 08/23/17 Levothyroxine Sodium [Synthroid] 75 mcg PO DAILY 06/13/17 08/23/17 Aspirin 81 mg PO DAILY 08/23/17 08/23/17 Previous Rx's Medication Instructions Recorded Cyclobenzaprine [Flexeril] 10 mg PO TID #20 tab 08/23/17 Hydrocodone/Acetaminophen [[place] 1 each PO Q6HR PRN #12 tab 08/23/17 5-325] Ibuprofen [Motrin] 600 mg PO Q6HR PRN #40 day 08/23/17 Allergies Allergy/AdvReac Type Severity Reaction Status Date / Time No Known Allergies Allergy Verified 01/16/22 00:55 Review of Systems ROS Statement: Those systems with pertinent positive or pertinent negative responses have been documented in the HPI. Review of Systems: CONST: Denies fever EYES: Denies blurry vision ENT: Denies nasal congestion C/V: Denies Chest pain RESP: Denies shortness of breath GI: Endorses abdominal pain : Denies dysuria SKIN: Denies rash. MSK: Denies joint pain. NEURO: Denies headache ROS Other: All systems not noted in ROS Statement are negative. Past Medical History Past Medical History: Diabetes Mellitus, Hyperlipidemia, Hypertension, Thyroid Disorder Additional Past Medical History / Comment(s): gallbladder. ileus History of Any Multi-Drug Resistant Organisms: None Reported Past Surgical History: Orthopedic Surgery Additional Past Surgical History / Comment(s): screws and pins inserted in left ankle Past Anesthesia/Blood Transfusion Reactions: No Reported Reaction Past Psychological History: No Psychological Hx Reported Smoking Status: Never smoker Past Alcohol Use History: Occasional Past Drug Use History: None Reported - Past Family History Mother Family Medical History: No Reported History General Exam - General Exam Comments Initial Comments: General: Appears in mild distress secondary to abdominal pain. HEAD: Normal with no signs of head trauma. EYES: PERRLA, EOMI, conjunctiva normal, no discharge. ENT: Hearing grossly intact, normal oropharynx. RESPIRATORY: Clear breath sounds bilaterally. No wheezes, rales, or rhonchi. C/V: Regular rate and rhythm. S1 and S2 auscultated, no edema, peripheral pulses 2+ and intact throughout ABD: Abdomen is soft, nondistended. Tender to palpation over the right upper quadrant, as well as mid abdomen. No guarding. No peritoneal signs. No rebound tenderness.Patient has an apparent umbilical hernia with no skin changes. Mildly tender at this site. EXT: Normal range of motion, no obvious deformity SKIN: No rashes or lesions observed on exposed skin. NEURO: Alert and oriented 4. Course Vital Signs 01/16/22 01/16/22 01/16/22 00:50 01:03 03:20 Temperature 97.6 F Pulse Rate 81 75 84 Respiratory 19 18 16 Rate Blood Pressure 141/64 172/80 163/75 O2 Sat by Pulse 100 99 98 Oximetry Medical Decision Making - Medical Decision Making Based on the patient's presentation and physical exam, I'm concerned for acute intra-abdominal process for current symptoms. We'll obtain abdominal laboratory studies, CT abdomen and pelvis. She'll be symptomatically treated with IV fluids and analgesia. She was in agreement this plan. Vital signs are within acceptable limits. EKG shows no signs of acute ischemia.Patient's laboratory studies are remarkable for a lactic acid within normal limits. Remainder the labs are within acceptable limits. The urine is still pending at this time.Urinalysis is unremarkable. This showed 3+ ketones likely from nausea and vomiting. Patient's chest x-ray shows no acute cardio primary process. Patient's CT abdomen and pelvis is remarkable for a incarcerated umbilical hernia with resultant mechanical bowel obstruction. Hernia sac is 3 cm in diameter. I did discuss the findings with the patient. Is there is no skin changes here, we will attempt reduction. Reduction was successful. Following reduction, patient still having pain. I did recommend that we admit her to the hospital for bowel exams, and Gen. surgery can evaluate her. She was in agreement this plan. I spoke with the admitting on-call surgeon, Dr. Arredondo who accepted the patient. Requested the patient be administered a single dose of Zosyn empirically which was done. I will keep her nothing by mouth for now. We will continue IV fluids, analgesia. - Lab Data Result diagrams: 01/16/22 02:00 01/16/22 02:00 Lab Results 01/16/22 01/16/22 01/16/22 Range/Units 02:00 02:00 02:00 WBC 8.9 (3.8-10.6) k/uL RBC 4.11 (3.80-5.40) m/uL Hgb 13.4 (11.4-16.0) gm/dL Hct 38.0 (34.0-46.0) % MCV 92.5 (80.0-100.0) fL MCH 32.5 (25.0-35.0) pg MCHC 35.2 (31.0-37.0) g/dL RDW 12.6 (11.5-15.5) % Plt Count 260 (150-450) k/uL MPV 8.1 Neutrophils % 76 % Lymphocytes % 15 % Monocytes % 5 % Eosinophils % 1 % Basophils % 1 % Neutrophils # 6.8 (1.3-7.7) k/uL Lymphocytes # 1.3 (1.0-4.8) k/uL Monocytes # 0.4 (0-1.0) k/uL Eosinophils # 0.0 (0-0.7) k/uL Basophils # 0.1 (0-0.2) k/uL PT 12.0 (9.0-12.0) sec INR 1.1 (<1.2) APTT 24.0 (22.0-30.0) sec Sodium 133 L (137-145) mmol/L Potassium 4.4 (3.5-5.1) mmol/L Chloride 97 L (98-107) mmol/L Carbon Dioxide 20 L (22-30) mmol/L Anion Gap 16 mmol/L BUN 20 H (7-17) mg/dL Creatinine 0.73 (0.52-1.04) mg/dL Est GFR (CKD-EPI)AfAm >90 (>60 ml/min/1.73 sqM) Est GFR (CKD-EPI)NonAf 83 (>60 ml/min/1.73 sqM) Glucose 144 H (74-99) mg/dL Plasma Lactic Acid Jose (0.7-2.0) mmol/L Calcium 10.1 (8.4-10.2) mg/dL Total Bilirubin 1.0 (0.2-1.3) mg/dL AST 30 (14-36) U/L ALT 36 H (4-34) U/L Alkaline Phosphatase 83 (38-126) U/L Total Protein 7.8 (6.3-8.2) g/dL Albumin 4.7 (3.5-5.0) g/dL Amylase 61 (30-110) U/L Lipase 115 (23-300) U/L Urine Color Urine Appearance (Clear) Urine pH (5.0-8.0) Ur Specific [place] (1.001-1.035) Urine Protein (Negative) Urine Glucose (UA) (Negative) Urine Ketones (Negative) Urine Blood (Negative) Urine Nitrite (Negative) Urine Bilirubin (Negative) Urine Urobilinogen (<2.0) mg/dL Ur Leukocyte Esterase (Negative) Urine RBC (0-5) /hpf Urine WBC (0-5) /hpf Amorphous Sediment (None) /hpf Urine Bacteria (None) /hpf Urine Mucus (None) /hpf 01/16/22 01/16/22 Range/Units 02:00 03:20 WBC (3.8-10.6) k/uL RBC (3.80-5.40) m/uL Hgb (11.4-16.0) gm/dL Hct (34.0-46.0) % MCV (80.0-100.0) fL MCH (25.0-35.0) pg MCHC (31.0-37.0) g/dL RDW (11.5-15.5) % Plt Count (150-450) k/uL MPV Neutrophils % % Lymphocytes % % Monocytes % % Eosinophils % % Basophils % % Neutrophils # (1.3-7.7) k/uL Lymphocytes # (1.0-4.8) k/uL Monocytes # (0-1.0) k/uL Eosinophils # (0-0.7) k/uL Basophils # (0-0.2) k/uL PT (9.0-12.0) sec INR (<1.2) APTT (22.0-30.0) sec Sodium (137-145) mmol/L Potassium (3.5-5.1) mmol/L Chloride (98-107) mmol/L Carbon Dioxide (22-30) mmol/L Anion Gap mmol/L BUN (7-17) mg/dL Creatinine (0.52-1.04) mg/dL Est GFR (CKD-EPI)AfAm (>60 ml/min/1.73 sqM) Est GFR (CKD-EPI)NonAf (>60 ml/min/1.73 sqM) Glucose (74-99) mg/dL Plasma Lactic Acid Jose 1.6 (0.7-2.0) mmol/L Calcium (8.4-10.2) mg/dL Total Bilirubin (0.2-1.3) mg/dL AST (14-36) U/L ALT (4-34) U/L Alkaline Phosphatase (38-126) U/L Total Protein (6.3-8.2) g/dL Albumin (3.5-5.0) g/dL Amylase (30-110) U/L Lipase (23-300) U/L Urine Color Yellow Urine Appearance Cloudy H (Clear) Urine pH 8.0 (5.0-8.0) Ur Specific [place] 1.025 (1.001-1.035) Urine Protein Negative (Negative) Urine Glucose (UA) Negative (Negative) Urine Ketones 3+ H (Negative) Urine Blood Negative (Negative) Urine Nitrite Negative (Negative) Urine Bilirubin Negative (Negative) Urine Urobilinogen <2.0 (<2.0) mg/dL Ur Leukocyte Esterase Negative (Negative) Urine RBC <1 (0-5) /hpf Urine WBC <1 (0-5) /hpf Amorphous Sediment Occasional H (None) /hpf Urine Bacteria Rare H (None) /hpf Urine Mucus Rare H (None) /hpf - EKG Data -: EKG Interpreted by Me EKG Comments: 12-lead Electrocardiogram Interpretation Note EKG was reviewed and interpreted by myself. 12-lead ECG performed at 0210 is interpreted by me as revealing normal sinus rhythm at a rate of 68 beats per minute. [place] is normal. ME interval is 155 ms, QRS duration is 80 ms, QTc is 428 ms.. There were no ST or T wave abnormalities to suggest myocardial ischemia or injury. R wave progression across the precordium was satisfactory. By my interpretation this EKG is non-diagnostic for acute ischemia. Disposition Clinical Impression: Incarcerated hernia, Abdominal pain, SBO (small bowel obstruction) Disposition: ADMITTED IP TO THIS [facility] Condition: Stable Referrals: Diana Jain MD [Primary Care Provider] - 1-2 days Time of Disposition: 04:00
[2022-01-16 03:42] LABS: Amorphous Sediment,Urine Occasional /hpf; Appearance,Urine Cloudy (Clear); Bacteria,Urine Rare /hpf; Bilirubin,Urine Negative (Negative); Blood,Urine Negative (Negative); Color,Urine Yellow; Glucose,Urine (UA) Negative (Negative); Ketones,Urine 3+ (Negative); Leukocyte Esterase,Urine Negative (Negative); Mucus,Urine Rare /hpf; Nitrite,Urine Negative (Negative); Protein,Urine Negative (Negative); RBC,Urine <1 /hpf (0-5); Specific Gravity,Urine 1.025 (1.001-1.035); Urobilinogen,Urine <2.0 mg/dL (<2.0); WBC,Urine <1 /hpf (0-5)
--- NOTE | 2022-01-16 03:46 | CT ---
EXAMINATION TYPE: CT abdomen pelvis w con DATE OF EXAM: 01/16/2022 COMPARISON: 06/12/2017 HISTORY: abdominal pain, acute, nonlocalized CT DLP: 1279.9 mGycm Automated exposure control for dose reduction was used. CONTRAST: Performed with IV Contrast, patient injected with 100ml mL of Isovue 370. Images obtained from the diaphragm to the floor the pelvis with the IV contrast. There is mild subsegmental atelectasis at the lung bases. Heart appears normal. No pericardial effusi on. No pleural effusion. Liver spleen and stomach pancreas and gallbladder appear intact. The bile ducts are not dilated. There is no adrenal mass. Kidneys have normal size and contour. No hydronephrosis. Ureters are not di lated. No retroperitoneal adenopathy. The bladder distends smoothly. No inguinal hernia. No free flui d in the pelvis. Uterus is anteverted. No pelvic mass. Appendix not seen with certainty. No sign of thickened appendix. There is multiple small bowel fluid levels. Small bowel dilated up to 3 cm. No free air. There is inc arcerated small bowel hernia at the umbilicus. There is transition point at the hernia. Hernia sac me asures 3 cm in diameter. The lumbar vertebrae have normal alignment. There is mild spurring of the endplates. There is vacuum disc at L4-5. Facet joints are intact. The bony pelvis is intact. The hip joints are intact. Sacroili ac joints are intact. IMPRESSION: There is incarcerated umbilical hernia with resultant mechanical small bowel obstruction. Hernia appe ars new compared to old exam. There is minimal subsegmental ectasis at the lung bases which is increa sed compared to the old exam.
--- NOTE | 2022-01-16 03:47 | XR ---
EXAMINATION TYPE: XR chest 1V portable DATE OF EXAM: 01/16/2022 COMPARISON: 06/12/2017 HISTORY: Abdominal pain TECHNIQUE: Single view FINDINGS: Heart is normal. Lungs are clear of infiltrate. No heart failure. There are no hilar masses . Costophrenic angles are clear. IMPRESSION: No active cardiopulmonary disease. Normal heart. No change.
[2022-01-16] MEDS ORDERED: PIPERACILLIN-TAZOBACTAM 3.375 GM in SODIUM CHLORIDE 0.9% 100 ML IVPB STA (04:25)
[2022-01-16] MEDS ORDERED: ONDANSETRON 4 MG/2 ML VIAL IVP PRN (04:27)
[2022-01-16] MEDS ORDERED: NALOXONE 0.4 MG/ML 1 ML VIAL IV PRN (04:27)
[2022-01-16] MEDS ORDERED: MORPHINE SULFATE 4 MG/ML SYRINGE IV PRN (04:27)
[2022-01-16] MEDS ORDERED: SODIUM CHLORIDE 0.9% 1,000 ML IV SCH (04:30)
[2022-01-16] MEDS ORDERED: LEVOTHYROXINE 75 MCG TAB PO SCH (06:30)
[2022-01-16] MEDS ORDERED: HEPARIN SODIUM,PORCINE/PF 5,000 UNIT/0.5 ML SYRINGE SQ SCH (08:00)
[2022-01-16] MEDS ORDERED: ASPIRIN 81 MG PO SCH (09:00)
[2022-01-16] MEDS ORDERED: LOSARTAN 50 MG TAB PO SCH (09:00)
[2022-01-16] MEDS ORDERED: METOPROLOL SUCCINATE (ER) 50 MG TAB.ER.24H PO SCH (09:00)
[2022-01-16] MEDS ORDERED: lisinopriL 20 MG TAB PO SCH (09:30)
[2022-01-16 09:34] VITALS: BP 118/75; PULSE 65; RESP 16; TEMP 98.6
[2022-01-16] MEDS ORDERED: DOCUSATE 100 MG CAP PO SCH (10:30)
--- NOTE | 2022-01-16 13:33 | P.GSHP ---
History of Present Illness H&P Date: 01/16/22 CHIEF COMPLAINT: Abdominal pain HISTORY OF PRESENT ILLNESS: This is a 71-year-old female who presented with abdominal pain. She had a umbilicus hernia. Patient reports that she had a hernia at her bellybutton throughout the summer. Over the last couple a days she had increase in pain and hardness at the hernia site. She describes a large bulge area. No discoloration. Pain also was to the right side of her bellybutton. She was having vomiting. Her last bowel movement was yesterday morning. She has restarted passing gas today. She had a computed tomography scan of the abdomen and pelvis showing an incarcerated umbilical hernia with mechanical small bowel obstruction. The hernia was reduced in the ER by the ER physician. Patient reports improvement in her pain and nausea and vomiting since the reduction of the hernia. She has tolerated diet. PAST MEDICAL HISTORY: See list. PAST SURGICAL HISTORY: See list. MEDICATIONS: See list. ALLERGIES: See list. SOCIAL HISTORY: No illicit drug use. REVIEW OF SYSTEMS: CONSTITUTIONAL: Denies fever or chills. HEENT: Denies blurred vision, vision changes, or eye pain. Denies hemoptysis CARDIOVASCULAR: Denies chest pain or pressure. RESPIRATORY: No shortness of breath. GASTROINTESTINAL: See HPI for pertinent findings HEMATOLOGIC: Denies bleeding disorders. GENITOURINARY: Denies any blood in urine or increased urinary frequency. SKIN: Denies pruitis. Denies rash. PHYSICAL EXAM: VITAL SIGNS: Reviewed GENERAL: Well-developed in no acute distress. HEENT: No sclera icterus. Extraocular movements grossly intact. Moist buccal mucosa. Head is atraumatic, normocephalic. No nasal drainage. ABDOMEN: Soft. Nondistended. Hernia is reduced. Umbilicus is tender with palpation. No discoloration. NEUROLOGIC: Alert and oriented. Cranial nerves II through XII grossly intact. LABORATORY DATA: WBC 8.9 Hgb 13.4 platelets 260 INR 1.1 Sodium is 133 potassium is 4.4 creatinine 0.73 Lactic acid 1.6 Total bili 1 AST 30 ALT 36 lipase 115 Urinalysis negative for infection IMAGING: Computed tomography scan shows there is incarcerated umbilical hernia with resultant mechanical small bowel obstruction. Hernia appears new compared to old exam. There is minimal subsegmental atelectasis at the lung bases which is increased compared to old exam. ASSESSMENT: 1. Incarcerated umbilical hernia with resultant mechanical small bowel obstruction status post reduction of hernia PLAN: -Start clear liquid diet and advance as tolerated -If patient tolerates diet she can be discharged later today -Plan for umbilical hernia repair outpatient Physician [employer] note has been reviewed by physician. Signing provider agrees with the documented findings, assessment, and plan of care. Past Medical History Past Medical History: Diabetes Mellitus, Hyperlipidemia, Hypertension, Thyroid Disorder Additional Past Medical History / Comment(s): gallbladder. ileus History of Any Multi-Drug Resistant Organisms: None Reported Past Surgical History: Orthopedic Surgery Additional Past Surgical History / Comment(s): screws and pins inserted in left ankle Past Anesthesia/Blood Transfusion Reactions: No Reported Reaction Past Psychological History: No Psychological Hx Reported Smoking Status: Never smoker Past Alcohol Use History: Occasional Past Drug Use History: None Reported - Past Family History Mother Family Medical History: No Reported History Medications and Allergies Home Medications Medication Instructions Recorded Confirmed Type Cyanocobalamin (Vitamin B-12) 1,000 mcg PO DAILY 06/12/17 01/16/22 History [Vitamin B-12] Metoprolol Succinate [Toprol XL] 50 mg PO DAILY 06/12/17 01/16/22 History Pravastatin Sodium [Pravachol] 80 mg PO HS 06/12/17 01/16/22 History metFORMIN HCL [metFORMIN HCL ER] 750 mg PO W/SUPPER 06/12/17 01/16/22 History Levothyroxine Sodium [Synthroid] 75 mcg PO AC-BRKFST 06/13/17 01/16/22 History Aspirin 81 mg PO HS 08/23/17 01/16/22 History Ascorbic Acid [Vitamin C] 1,000 mg PO DAILY 01/16/22 01/16/22 History Cholecalciferol [Vitamin D3 (25 25 mcg PO DAILY 01/16/22 01/16/22 History Mcg = 1000 Iu)] lisinopriL [Zestril] 20 mg PO DAILY 01/16/22 01/16/22 History Allergies Allergy/AdvReac Type Severity Reaction Status Date / Time No Known Allergies Allergy Verified 01/16/22 07:29 Surgical - Exam Vital Signs Temp Pulse Resp BP Pulse Ox 97.6 F 81 19 141/64 100 01/16/22 00:50 01/16/22 00:50 01/16/22 00:50 01/16/22 00:50 01/16/22 00:50 Results - Labs 01/16/22 02:00 01/16/22 02:00 Abnormal Lab Results - Last 24 Hours (Table) 01/16/22 01/16/22 Range/Units 02:00 03:20 Sodium 133 L (137-145) mmol/L Chloride 97 L (98-107) mmol/L Carbon Dioxide 20 L (22-30) mmol/L BUN 20 H (7-17) mg/dL Glucose 144 H (74-99) mg/dL ALT 36 H (4-34) U/L Urine Appearance Cloudy H (Clear) Urine Ketones 3+ H (Negative) Amorphous Sediment Occasional H (None) /hpf Urine Bacteria Rare H (None) /hpf Urine Mucus Rare H (None) /hpf Diabetes panel 01/16/22 Range/Units 02:00 Sodium 133 L (137-145) mmol/L Potassium 4.4 (3.5-5.1) mmol/L Chloride 97 L (98-107) mmol/L Carbon Dioxide 20 L (22-30) mmol/L BUN 20 H (7-17) mg/dL Creatinine 0.73 (0.52-1.04) mg/dL Glucose 144 H (74-99) mg/dL Calcium 10.1 (8.4-10.2) mg/dL AST 30 (14-36) U/L ALT 36 H (4-34) U/L Alkaline Phosphatase 83 (38-126) U/L Total Protein 7.8 (6.3-8.2) g/dL Albumin 4.7 (3.5-5.0) g/dL Calcium panel 01/16/22 Range/Units 02:00 Calcium 10.1 (8.4-10.2) mg/dL Albumin 4.7 (3.5-5.0) g/dL Pituitary panel 01/16/22 Range/Units 02:00 Sodium 133 L (137-145) mmol/L Potassium 4.4 (3.5-5.1) mmol/L Chloride 97 L (98-107) mmol/L Carbon Dioxide 20 L (22-30) mmol/L BUN 20 H (7-17) mg/dL Creatinine 0.73 (0.52-1.04) mg/dL Glucose 144 H (74-99) mg/dL Calcium 10.1 (8.4-10.2) mg/dL Adrenal panel 01/16/22 Range/Units 02:00 Sodium 133 L (137-145) mmol/L Potassium 4.4 (3.5-5.1) mmol/L Chloride 97 L (98-107) mmol/L Carbon Dioxide 20 L (22-30) mmol/L BUN 20 H (7-17) mg/dL Creatinine 0.73 (0.52-1.04) mg/dL Glucose 144 H (74-99) mg/dL Calcium 10.1 (8.4-10.2) mg/dL Total Bilirubin 1.0 (0.2-1.3) mg/dL AST 30 (14-36) U/L ALT 36 H (4-34) U/L Alkaline Phosphatase 83 (38-126) U/L Total Protein 7.8 (6.3-8.2) g/dL Albumin 4.7 (3.5-5.0) g/dL
--- NOTE | 2022-01-16 13:36 | P.DS ---
Providers Date of admission: 01/16/22 04:27 Expected date of discharge: 01/16/22 Attending physician: Romel Arredondo Primary care physician: Diana Susy [facility] Course: Discharge diagnosis 1. Incarcerated umbilical hernia with resultant mechanical small bowel obstruction status post reduction of hernia in the ER Hospital course This is a 71-year-old female with an umbilical hernia who presented to the hospital with complaints of abdominal pain. Computed tomography scan had shown evidence of incarcerated umbilical hernia with mechanical small bowel obstruction. Patient had reduction of the hernia by the ER physician. Since then her pain has improved. She is no longer any vomiting. She is tolerating diet. She is able tolerate her lunch. Her pain is controlled. She is up and ambulating. She's afebrile. She is stable for discharge. Patient will follow- up with Dr. Arredondo next week for umbilical hernia repair outpatient. Physician [employer] note has been reviewed by physician. Signing provider agrees with the documented findings, assessment, and plan of care. Patient Condition at Discharge: Stable Plan - Discharge Summary New Discharge Prescriptions: Continue metFORMIN HCL [metFORMIN HCL ER] 750 mg PO W/SUPPER Metoprolol Succinate [Toprol XL] 50 mg PO DAILY Cyanocobalamin (Vitamin B-12) [Vitamin B-12] 1,000 mcg PO DAILY Pravastatin Sodium [Pravachol] 80 mg PO HS Levothyroxine Sodium [Synthroid] 75 mcg PO AC-BRKFST Aspirin 81 mg PO HS lisinopriL [Zestril] 20 mg PO DAILY Ascorbic Acid [Vitamin C] 1,000 mg PO DAILY Cholecalciferol [Vitamin D3 (25 Mcg = 1000 Iu)] 25 mcg PO DAILY Discharge Medication List Cyanocobalamin (Vitamin B-12) [Vitamin B-12] 1,000 mcg PO DAILY 06/12/17 [History] Metoprolol Succinate [Toprol XL] 50 mg PO DAILY 06/12/17 [History] Pravastatin Sodium [Pravachol] 80 mg PO HS 06/12/17 [History] metFORMIN HCL [metFORMIN HCL ER] 750 mg PO W/SUPPER 06/12/17 [History] Levothyroxine Sodium [Synthroid] 75 mcg PO AC-BRKFST 06/13/17 [History] Aspirin 81 mg PO HS 08/23/17 [History] Ascorbic Acid [Vitamin C] 1,000 mg PO DAILY 01/16/22 [History] Cholecalciferol [Vitamin D3 (25 Mcg = 1000 Iu)] 25 mcg PO DAILY 01/16/22 [History] lisinopriL [Zestril] 20 mg PO DAILY 01/16/22 [History] Follow up Appointment(s)/Referral(s): Romel Arredondo MD [Medical Doctor] - 01/23/22 Diana Jain MD [Primary Care Provider] - 1-2 days Activity/Diet/Wound Care/Special Instructions: Continue a soft diet until seen by surgeon Discharge Disposition: HOME SELF-CARE
[2022-01-16] MEDS ORDERED: metFORMIN 500 MG TAB PO SCH (21:00)
== END 2022-01-16 14:05 | disposition home or self-care (01) | DRG 395 ==
LOC: EC 00:33 → 5NMEDONC 04:27
PROVIDERS: ADMIT Surgery; ATTEND Surgery
DX: K42.0 Umbilical hernia with obstruction, without gangrene (principal); E07.9 Disorder of thyroid, unspecified; E11.9 Type 2 diabetes mellitus without complications; Z28.310 Unvaccinated for COVID-19; I10 Essential (primary) hypertension; E78.5 Hyperlipidemia, unspecified; Z79.82 Long term (current) use of aspirin; Z79.890 Hormone replacement therapy; Z79.84 Long term (current) use of oral hypoglycemic drugs; Z79.899 Other long term (current) drug therapy
CPT/HCPCS: 36415; 71045; 74177; 80053; 81001; 82150; 83605; 83690; 85025; 85610; 85730; 87040; 93005; 96374; 96375; 99285

== ENCOUNTER 2022-01-26 10:25 | Day surgery (SDC) | payer MEDICARE ==
[2022-01-21 11:45] VITALS: BMI 32.5
--- NOTE | 2022-01-26 07:38 | P.GSHP ---
History of Present Illness H&P Date: 01/26/22 Chief Complaint: Incarcerated umbilical hernia 71-year-old female presented to the ER a week and a half ago or so with an incarcerated umbilical hernia. This was able to be reduced. Patient's pain improved and she was discharged home. She was scheduled for surgery last week but that was canceled secondary to emergency surgery. Patient returns today for elective repair. Hernia has been there for the last 4-6 months. Past Medical History Past Medical History: Diabetes Mellitus, Hyperlipidemia, Hypertension, Osteoarthritis (OA), Thyroid Disorder Additional Past Medical History / Comment(s): UMBILICAL HERNIA History of Any Multi-Drug Resistant Organisms: None Reported Past Surgical History: Orthopedic Surgery Additional Past Surgical History / Comment(s): screws and pins inserted in left ankle, right sinus surgery. Past Anesthesia/Blood Transfusion Reactions: Previous Problems w/ Anesthesia, Motion Sickness Additional Past Anesthesia/Blood Transfusion Reaction / Comment(s): states high bloodpressure after sinus surgery and she had to stay 2 days in hospital. Past Psychological History: No Psychological Hx Reported Smoking Status: Never smoker Past Alcohol Use History: Occasional Past Drug Use History: None Reported - Past Family History Mother Family Medical History: No Reported History Sister(s) Family Medical History: Cancer Additional Family Medical History / Comment(s): vulva cancer Medications and Allergies Home Medications Medication Instructions Recorded Confirmed Type Cyanocobalamin (Vitamin B-12) 1,000 mcg PO DAILY 06/12/17 01/21/22 History [Vitamin B-12] Metoprolol Succinate [Toprol XL] 50 mg PO DAILY 06/12/17 01/21/22 History Pravastatin Sodium [Pravachol] 80 mg PO HS 06/12/17 01/21/22 History metFORMIN HCL [metFORMIN HCL ER] 750 mg PO HS 06/12/17 01/21/22 History Levothyroxine Sodium [Synthroid] 75 mcg PO AC-[id number] 06/13/17 01/21/22 History Aspirin 81 mg PO HS 08/23/17 01/21/22 History Cholecalciferol [Vitamin D3 (25 25 mcg PO DAILY 01/16/22 01/21/22 History Mcg = 1000 Iu)] lisinopriL [Zestril] 20 mg PO DAILY 01/16/22 01/21/22 History Calcium (Unknown Dose) 1 dose PO DAILY 01/21/22 History Cinnamon Bark [Cinnamon] 1,000 mg PO DAILY 01/21/22 01/21/22 History Ibuprofen [Motrin Ib] 400 mg PO Q8H PRN 01/21/22 01/21/22 History Multivitamins, Thera [Multivitamin 1 tab PO DAILY 01/21/22 01/21/22 History (formulary)] St Johnson Wort (Unknown Dose) 1 dose PO DAILY 01/21/22 History Turmeric Root Extract [Turmeric] 1,500 mg PO DAILY 01/21/22 01/21/22 History Allergies Allergy/AdvReac Type Severity Reaction Status Date / Time No Known Allergies Allergy Verified 01/21/22 11:45 Surgical - Exam Physical exam: General: Well-developed, well-nourished HEENT: Normocephalic, sclerae nonicteric Abdomen: Nontender, nondistended, partially reducible umbilical hernia Extremities: No edema Neuro: Alert and oriented Assessment and Plan (1) Incarcerated hernia Narrative/Plan: 71-year-old female with incarcerated umbilical hernia. We'll proceed with open repair with mesh at this time. Risks of bleeding, infection, recurrence, bladder and bowel injury, numbness, nerve injury were discussed with the patient. The patient understands and wishes to proceed. Status: Acute Code(s): K46.0 - UNSP ABDOMINAL HERNIA WITH OBSTRUCTION, WITHOUT GANGRENE SNOMED Code(s): 28463495
[~2022-01-26 10:25] MED LIST: ACETAMINOPHEN TAB 500 MG TAB PO PRN; DEXAMETHASONE SOD PHOSPHATE 4 MG/ML 1 ML VIAL IV ONE; HEPARIN SODIUM,PORCINE/PF 5,000 UNIT/0.5 ML SYRINGE SQ PRN; HYDROmorphone 0.5 MG/0.5 ML SYRINGE IVP PRN; LACTATED RINGERS 1,000 ML IV SCH; LIDOCAINE 1% (10MG/ML) FOR IV START INTRADERMA PRN; MIDAZOLAM 2 MG/2 ML VIAL IV PRN; ONDANSETRON 4 MG/2 ML VIAL IVP ONE
[2022-01-26 11:02] VITALS: TEMP 97.2
[2022-01-26 11:02] LABS: Glucose,Whole Blood 128 mg/dL (70-110)
[2022-01-26] MEDS ORDERED: ACETAMINOPHEN TAB 500 MG TAB ONE (11:05)
[2022-01-26] MEDS ORDERED: HEPARIN SODIUM,PORCINE/PF 5,000 UNIT/0.5 ML SYRINGE SQ ONE (11:05)
[2022-01-26] MEDS ORDERED: ONDANSETRON 4 MG/2 ML VIAL ONE (11:06)
[2022-01-26] MEDS ORDERED: DEXAMETHASONE SOD PHOSPHATE 4 MG/ML 1 ML VIAL IVP ONE (11:10)
[2022-01-26] MEDS ORDERED: PROPOFOL 10 MG/ML 20 ML VIAL IV ONE (12:15)
[2022-01-26] MEDS ORDERED: SUCCINYLCHOLINE CHLORIDE 200 MG/10 ML VIAL IV ONE (12:15)
[2022-01-26] MEDS ORDERED: ROCURONIUM 10 MG/ML (5 ML VIAL) IV ONE (12:15)
[2022-01-26] MEDS ORDERED: fentaNYL (PF) 50 MCG/ML 2 ML AMP ONE (12:15)
[2022-01-26] MEDS ORDERED: MIDAZOLAM 2 MG/2 ML VIAL ONE (12:15)
[2022-01-26] MEDS ORDERED: LIDOCAINE 2% INJ 20 MG/ML (2 ML VIAL) ONE (12:15)
[2022-01-26] MEDS ORDERED: GLYCOPYRROLATE 0.2 MG/ML 2 ML VIAL ONE (12:15)
[2022-01-26] MEDS ORDERED: NEOSTIGMINE 1 MG/ML 10 ML VIAL ONE (12:15)
[2022-01-26] MEDS ORDERED: BUPIVACAINE (PF) 0.25% 30 ML VIAL SQ ONE ×2 (12:50→13:10)
[2022-01-26] MEDS ORDERED: HYDROmorphone 0.5 MG/0.5 ML SYRINGE IVP ONE ×3 (13:39→14:04)
[2022-01-26] MEDS ORDERED: traMADol 50 MG TAB PO STA (14:04)
--- NOTE | 2022-01-26 14:06 | P.OP ---
Date of Procedure: 01/26/22 Procedure(s) Performed: PREOPERATIVE DIAGNOSIS: Incarcerated umbilical hernia POSTOPERATIVE DIAGNOSIS: Same PROCEDURE: Open repair incarcerated umbilical hernia with mesh SURGEON: Dr. Arerdondo ANESTHESIA: General OPERATIVE PROCEDURE DETAILS: The patient was placed in the operating table in the supine position. A right sided periumbilical incision was made using the scalpel. The subcutaneous tissues were dissected bluntly and with cautery. The hernia sac was identified. The umbilical attachments to the fascia were divided using electrocautery. The hernia sac was reduced. The defect in the fascia measured 12 x 6 mm. The fat overlying the fascia was dissected. No additional defects were seen. The preperitoneal space was then dissected using blunt dissection and electrocautery. The 4.3 cm ventral ex mesh was placed beneath the fascia and sutured in place using trans-fascial 0 Ethibond sutures. The defect was closed using interrupted 0 Ethibond mattress sutures. The subcutaneous tissues were reapproximated using inverted 2-0 & 3-0 Vicryl sutures. The umbilicus was tacked back down to the fascia using a 2-0 Vicryl suture. The skin was closed using 4-0 Monocryl sutures. Skin glue and sterile dressings were then applied. TYPE OF MESH USED: 4.3 cm ventral ex LOCATION OF MESH: Sub-lay FIXATION: Trans-fascial 0 Ethibond sutures PREOPERATIVE DISCUSSION ON SMOKING CESSASTION: Yes PREOPERATIVE DISCUSSION ON MORBID OBESITY: Yes PREOPERATIVE DISCUSSION ON APPROPRIATE USE OF NARCOTIC USE: Yes PREOPERATIVE EDUCATION: Multi Modal, Smoking Cessation and Weight Loss with BMI over 35. DISPOSITION: Stable to recovery room
[2022-01-26] MEDS ORDERED: ACETAMINOPHEN TAB 325 MG TAB PO SCH (14:15)
[2022-01-26 14:26] LABS: Glucose,Whole Blood 116 mg/dL (70-110)
[2022-01-26] MEDS ORDERED: LACTATED RINGERS 1,000 ML IV ONE (15:02)
[2022-01-26 15:26] VITALS: RESP 16
[2022-01-26 15:42] VITALS: BP 136/80; PULSE 59
[2022-01-26] MEDS ORDERED: IBUPROFEN 600 MG TAB PO SCH (17:15)
== END 2022-01-26 16:20 | disposition home or self-care (01) ==
LOC: OR 10:25
PROVIDERS: ATTEND Surgery
DX: K42.0 Umbilical hernia with obstruction, without gangrene (principal); I10 Essential (primary) hypertension; E78.5 Hyperlipidemia, unspecified; E11.9 Type 2 diabetes mellitus without complications; E07.9 Disorder of thyroid, unspecified; M19.90 Unspecified osteoarthritis, unspecified site; Z86.59 Personal history of other mental and behavioral disorders; Z80.49 Family history of malignant neoplasm of other genital organs; Z79.82 Long term (current) use of aspirin; Z79.899 Other long term (current) drug therapy
CPT/HCPCS: 49587; C1781; J2250; J0330; J1100; J2710; J0690; J2405; J3010; J2704; J1170; J1644; J2001

== ENCOUNTER → 2022-03-11 | Outpatient (CLI) | payer MEDICARE ==
--- NOTE | 2022-03-11 16:15 | BD ---
EXAMINATION TYPE: Axial Bone Density DATE OF EXAM: 03/11/2022 COMPARISON: 01/03/2019 CLINICAL HISTORY: 71 years old Female. ICD-10 CODE: N95.1, Z12.31 Height: 63 Weight: 190 FRAX RISK QUESTIONS: Family History (Parent hip fracture): NO History of Fracture in Adulthood: NO Secondary Osteoporosis: NO Rheumatoid Arthritis: YES RISK FACTORS HISTORY OF: Family History of Osteoporosis: YES GRANDMA MAT Active: YES Diet low in dairy products/other sources of calcium: YES Postmenopausal woman: YES Lost more than 2 inches in height since high school: NO Frequent falls: NO Poor Health: NO MEDICATIONS: Thyroid Medications: YES Which medication: Synthroid How Lon+ YEARS Additional Medications: YES HBP , METFORMIN , CHOLESTEROL , VIT D EXAM MEASUREMENTS: Bone mineral densitometry was performed using the [employer] System. Bone mineral density as measured about the Lumbar spine is: ----- L1-L4(G/cm2): 1.222 T Score Values are as follows: ----- L1: 0.3 ----- L2: 0.1 ----- L3:0.4 ----- L4:0.6 ----- L1-L4: 0.4 Bone mineral density has: Increased 7.3% since study of: 01/03/2019 Bone mineral density about the R hip (g/cm2): 0.810 Bone mineral density about the L hip (g/cm2): 0.810 T Score values are as follows: -----R Neck: -1.6 -----L Neck: -2.0 -----R Total: -1.6 -----L Total: -1.6 Bone mineral density has: Increased 0.2% since study of: 01/03/2019 FRAX%s: The graph provided illustrates a 15.1% chance for a major osteoporotic fx and a 3.4% chance f or the hips probability for fx in 10 years time. IMPRESSION: Osteopenia (T Score between -2.5 and -1). There is slightly increased risk of fracture and the patient may be considered for treatment. Re-Screen 2-5 years. NOTE: T-SCORE=SD OF THE YOUNG ADULT MEAN.
--- NOTE | 2022-03-12 08:47 | MM ---
Reason for Exam: Screening (asymptomatic). Last mammogram was performed 1 year(s) and 9 month(s) ago. Patient History: Menarche at age 11. First Full-Term at age 19. Postmenopausal. Hormonal Contraceptives for 7 months. 07/23/2003, Stereotactic Core Biopsy on the Left side. Risk Values: Whitney 5 year model risk: 1.9%. NCI Lifetime model risk: 4.8%. Prior Study Comparison: 12/28/2016 Bilateral Screening Mammogram, [facility]. 01/03/2019 Bilateral Screening Mammogram, [facility]. 05/28/2020 Bilateral Screening Mammogram, [facility]. Tissue Density: The breast tissue is heterogeneously dense. This may lower the sensitivity of mammography. Findings: Analyzed By CAD. There is no suspicious group of microcalcifications or new suspicious mass in either breast. Overall Assessment: Negative, BI-RAD 1 Management: Screening Mammogram of both breasts in 1 year. A clinical breast exam by your physician is recommended on an annual basis and results should be correlated with mammographic findings. [facility] will attempt to contact patient to return for supplemental views and ultrasound if indicated. Electronically signed and approved by: Kemar Patterson DO
== END | disposition home or self-care (01) ==
LOC: RADMAMWWP 07:40
PROVIDERS: ATTEND Family Medicine
DX: Z12.31 Encounter for screening mammogram for malignant neoplasm of breast (principal); N95.1 Menopausal and female climacteric states
CPT/HCPCS: 77063; 77067; 77080